=== PATIENT | female | born 1980 | race Caucasian/White ===

== ENCOUNTER 2020-03-21 07:27 | Emergency (ER) | payer SELFPAY ==
[~2020-03-21] VITALS: Ht 167.6 cm; Wt 79.0 kg
[2020-03-21] MEDS ORDERED: KETOROLAC 30MG/ML VIAL IV STA (08:20)
[2020-03-21] MEDS ORDERED: SODIUM CHLORIDE 0.9% 1,000 ML IV ONE (08:30)
[2020-03-21 08:44] VITALS: BP 116/70
[2020-03-21 09:32] LABS: PROTHROMBIN TIME 10.8 sec (9.6-11.0)
[2020-03-21 09:34] LABS: ETHANOL BLOOD < 10 mg/dL
[2020-03-21 09:38] LABS: BASOPHILS % 0.5 % (0.0-2.0); EOSINOPHILS % 1.6 % (0.0-5.0); HEMATOCRIT. 36.2 % (36.0-48.0); LYMPHOCYTES % 23.5 % (20.0-50.0); MEAN CORPUSCULAR HEMOGLOBIN 28.6 pg (28.0-32.0); MEAN PLATELET VOLUME 8.3 fl (7.4-10.4); MONOCYTES % 7.4 % (2.0-8.0); PLATELET 280 x1000/uL (130-400); RED BLOOD CELL COUNT 4.21 mill/uL (4.2-5.4); RED CELL DISTRIBUTION WIDTH 16.9 % (11.6-14.6)
[2020-03-21 10:00] LABS: CHLORIDE 109 mEq/L (98-107)
== END 2020-03-21 11:56 | disposition home or self-care (01) ==
LOC: EDBD 07:27 → ER 07:48
DX: R55 Syncope and collapse (principal)
CPT/HCPCS: 36415; 80053; 80320; 85025; 85610; 93005; 99284; J7030; G0480